=== PATIENT | female | born 1995 | race Caucasian/White ===

== ENCOUNTER 2020-09-16 05:24 | Inpatient (IN) | payer MEDICAID ==
[2020-09-16] MEDS ORDERED: Lactated Ringers 1,000 ML IV SCH (06:30)
[2020-09-16] MEDS ORDERED: cefOXitin 1 GM Vial ONE (06:42)
[2020-09-16] MEDS ORDERED: Oxytocin 10 Units/1 ML SDV ONE ×2 (06:42→08:01)
[2020-09-16] MEDS ORDERED: HYDROmorphone/Normal Saline 15 MG/30 ML PCA IV PRN (07:30)
[2020-09-16] MEDS ORDERED: Naloxone 0.4 MG/ML SDV IVPUSH PRN (07:30)
[2020-09-16] MEDS ORDERED: ePHEDrine 50 MG/ML SDV ONE (07:41)
[2020-09-16] MEDS ORDERED: Sodium Chloride 0.9% 10 ML ONE (07:44)
[2020-09-16] MEDS ORDERED: Phenylephrine 1% 10 MG/ML SDV ONE (07:44)
[2020-09-16] MEDS ORDERED: Naloxone 0.4 MG/ML SDV IV PRN (08:00)
[2020-09-16] MEDS ORDERED: cefOXitin 2 GM Vial ONE (08:01)
[2020-09-16] MEDS ORDERED: fentaNYL 100 MCG/2 ML SDV ONE (08:22)
[2020-09-16] MEDS ORDERED: Ondansetron 4 MG/2 ML SDV IVPUSH PRN (10:00)
[2020-09-16] MEDS ORDERED: hydrOXYzine HCL 100 MG/2 ML SDV IM PRN (10:00)
[2020-09-16] MEDS: Acetaminophen 500 MG Tab PO SCH ×3 (10:40→22:16)
[2020-09-16] MEDS: Ibuprofen 600 MG Tab PO SCH ×3 (10:40→22:16)
[2020-09-16] MEDS: cefOXitin 2 GM in Sodium Chloride 0.9% 50 ML IV SCH ×2 (15:19→20:12)
[2020-09-16] MEDS: Dextrose 5%-Lactated Ringers 1,000 ML IV SCH ×2 (15:23→20:53)
[2020-09-17] MEDS: cefOXitin 2 GM in Sodium Chloride 0.9% 50 ML IV SCH ×3 (01:32→15:23)
[2020-09-17] MEDS: Acetaminophen 500 MG Tab PO SCH ×4 (03:57→21:33)
[2020-09-17] MEDS: Ibuprofen 600 MG Tab PO SCH ×4 (03:57→21:33)
--- NOTE | 2020-09-17 08:11 | PN ---
DATE OF SERVICE: 09/17/2020 SUBJECTIVE: Teresa Bustamante is postop day 1 following a section. Vital signs stable. Oral intake on a regular diet was 1475. 1500 mL urinary output. Pain is controlled with BOBBIN DUMPER. REVIEW OF SYSTEMS: Remainder of review of systems negative for any pertinent positives and negatives. OBJECTIVE: GENERAL: Teresa Bustamante is a pleasant 25-year-old female, alert, oriented. VITAL SIGNS: TPR last checked at 0134, 95.6, 79, 18, blood pressure 119/58, O2 sats by pulse oximetry 94%. HEENT: Negative. NECK: Supple. HEART: Regular rate and rhythm. LUNGS: Clear. ABDOMEN: Abdominal binder is on. EXTREMITIES: Without peripheral edema. ASSESSMENT: section delivery of viable male infant, date 09/16/2020. PLAN: 1. Saline lock IV. 2. Discontinue BOBBIN DUMPER and continuous pulse ox. 3. Dilaudid 2 to 4 mg every 4 hours p.r.n. pain. 4. Colace 100 mg p.o. b.i.d. 5. Dulcolax 10 mg p.o. b.i.d. May stop after the patient has bowel movement. 6. May shower. 7. We will evaluate p.r.n. or in a.m. Faith Curry PA-C /[id number]
[2020-09-17] MEDS: Docusate Sodium 100 MG Cap PO SCH ×2 (08:58→20:21)
[2020-09-17] MEDS: Bisacodyl 5 MG Tab PO SCH ×2 (08:58→20:20)
[2020-09-17] MEDS: HYDROmorphone 2 MG Tab PO PRN ×3 (11:56→20:20)
[2020-09-18] MEDS: HYDROmorphone 2 MG Tab PO PRN ×3 (00:39→09:04)
[2020-09-18] MEDS: Acetaminophen 500 MG Tab PO SCH ×2 (03:53→09:14)
[2020-09-18] MEDS: Ibuprofen 600 MG Tab PO SCH ×2 (03:53→09:14)
[2020-09-18] MEDS ORDERED: Furosemide 20 MG Tab PO ONE ×2 (06:48→11:00)
[2020-09-18] MEDS ORDERED: Magnesium Hydroxide 400 MG/5 ML Susp 30 ML Cup PO PRN (07:54)
[2020-09-18] MEDS: Bisacodyl 5 MG Tab PO SCH (09:08)
[2020-09-18] MEDS: Docusate Sodium 100 MG Cap PO SCH (09:14)
[2020-09-18] MEDS ORDERED: Potassium Chloride 20 MEQ Tab.ER PO ONE (11:00)
--- NOTE | 2020-09-19 15:02 | DISCH ---
FINAL DIAGNOSES: 1. Term with history of previous section. 2. History of posttraumatic stress disorder. 3. Recent COVID-19 infection. OPERATIVE PROCEDURE: Repeat section done on 07/16/2021. SUMMARY: This is a 25-year-old female presenting for a scheduled repeat section. She had a recent COVID infection for which she is now cleared and underwent a section without difficulty on the date of admission. The lateral malleolus delivered through a vertex presentation with occiput posterior presentation. Clinically, both baby and mother have done well postoperatively. She will be discharged home finishing all vitamins with 2 doses of milk of magnesia to take p.r.n., also Motrin 600 mg p.o. q.i.d. p.r.n. #40, and Dilaudid 2 mg p.o. q.4 hours p.r.n. pain #40. Follow up will be with Faith Curry at [facility] on 09/28/2020 at 10 a.m. /[id number]
--- NOTE | 2020-09-19 16:35 | OR ---
DATE OF PROCEDURE: 09/16/2020 SURGEON: Gael Pulliam MD PREOPERATIVE DIAGNOSIS: Term with history of previous section. POSTOPERATIVE DIAGNOSIS: Term with history of previous section. OPERATIVE PROCEDURE: Repeat section (70012). ANESTHESIA: Spinal. STEEL BARREL REAMER: Barbara Church CNM and [employer] student. INDICATIONS FOR PROCEDURE: This is a 25-year-old presenting with term with history of previous section. She was recently diagnosed with colon infection that is now cleared and she has been approved for surgical intervention at this time. The plan is to proceed with repeat section. Potential risks including bleeding, infection, injury to the baby and mother were reviewed and the patient wishes to proceed. DETAILS OF PROCEDURE: The patient was taken to the operating room and placed in a supine position. After spinal anesthetic was placed and a roll positioned underneath the right hip, a Kirk catheter was inserted and the abdomen prepped and draped. The previous Pfannenstiel incision was then reused and carried down through the skin and subcutaneous tissue, and through the anterior rectus sheath, subrectus sheath flaps were then raised superiorly and inferiorly and the midline peritoneum divided. Peritoneal reflection of the bladder on the uterus was reflected downward. A transverse lower uterine segment incision was made. Viable male was delivered with vertex presentation. The baby's head was quite big and had an occiput posterior position which would indicate that even if this was a primary a section likely would be needed. At any rate, the male was delivered without difficulty. Ports were clamped and cut. care given off the field per Barbara Church CNM. Placental and membranes were then delivered without difficulty. The patient was given intrauterine oxytocin and IV cefoxitin. Good uterine contractions were noted. The uterus was then closed with 2 layers of 2-0 Vicryl stitch as was the peritoneal reflection of the bladder on the uterus, and at that point, the posterior peritoneum and musculature were approximated with a #2 Vicryl stitch as was the anterior rectus sheath. The subcutaneous tissue was irrigated with cefoxitin-containing saline solution and then closed with 2 layers of 3-0 and 4-0 Vicryl stitch deep and a surgical glue applied to the incision. The patient was taken to the recovery room in satisfactory condition. There were no evident complications. Per ACOG guidelines, nurse natural sciences manager, Barbara Church's assistance in this case was indicated. Gael Pulliam MD /[id number]
== END 2020-09-18 12:30 | disposition home or self-care (01) | DRG 788 ==
LOC: JP.SDS 05:24 → JP.MS 08:00
PROVIDERS: ADMIT Surgery; ATTEND Surgery
PROC: 10D00Z1 Extraction of Products of Conception, Low, Open Approach (ICD-10-PCS; principal; 2020-09-16)
DX: O34.211 Maternal care for low transverse scar from previous cesarean delivery (principal); Z37.0 Single live birth; Z87.891 Personal history of nicotine dependence; Z86.16 Personal history of COVID-19; Z3A.39 39 weeks gestation of pregnancy
CPT/HCPCS: 36415; 51702; 59409; 80305-QW; 85025; 85027; 86850; 86900; 86901; 94762; A9270-GY; J0694; J1170; J2370; J2590; J3010; J3410; J7120; J7121

== ENCOUNTER 2022-03-01 19:08 | Emergency (ER) | payer MEDICAID ==
[2022-03-01] MEDS: Sodium Chloride 0.9% 1,000 ML IV SCH ×2 (20:50→22:43)
[2022-03-01 20:57] LABS: ESTIMATED GFR 102 mL/min (>60)
[2022-03-01] MEDS: Ketorolac 30 MG/ML SDV IVPUSH ONE (21:00)
[2022-03-01] MEDS: Ondansetron 4 MG/2 ML SDV IVPUSH ONE (21:00)
== END 2022-03-01 23:41 | disposition home or self-care (01) ==
LOC: JP.ED 19:08
DX: E86.0 Dehydration (principal); K21.9 Gastro-esophageal reflux disease without esophagitis; F17.210 Nicotine dependence, cigarettes, uncomplicated; Z86.16 Personal history of COVID-19; Z20.822 Contact with and (suspected) exposure to COVID-19
CPT/HCPCS: 36415; 80053; 81001; 85025; 86140; 87635; 96360; 96361; 96374; 96375; 99284; J1885; J2405; J7030; U0002

== ENCOUNTER 2022-07-27 17:10 | Emergency (ER) | payer MEDICAID ==
[2022-07-27] MEDS ORDERED: Sodium Chloride 0.9% 10 ML Syringe FLUSH PRN (17:56)
[2022-07-27] MEDS ORDERED: Metoclopramide 10 MG/2 ML SDV IVPUSH ONE (17:56)
== END 2022-07-27 19:36 | disposition home or self-care (01) ==
LOC: JP.ED 17:10
DX: R51.9 Headache, unspecified (principal); K21.9 Gastro-esophageal reflux disease without esophagitis; Z86.16 Personal history of COVID-19
CPT/HCPCS: 36415; 70450; 85379; 96374; 99284; J2765; J3490